=== PATIENT | male | born 1965 | race Caucasian/White ===

== ENCOUNTER 2019-01-03 19:09 | Emergency (ER) | payer OTHER ==
[~2019-01-03 19:09] MED LIST: ? B/P MED; AMBIEN 10 MG TA10 MG; AZITHROMYCIN 2250 MG PO; BENTYL20 MG PO; HYDROCODON-ACE1 EAC7 PO; LEXAPRO 10 MG T10 MG; SEROQUEL200 MG PO; TRICOR; VALIUM10 MG PO; XANAX 0.5 MG0.5 M1; ZOFRAN ODT4 MG PO
== END 2019-01-03 19:30 ==
LOC: M.ERS 19:09
DX: Z02.89 Encounter for other administrative examinations (principal)